=== PATIENT | male | born 1950 | race Two or more races ===

== ENCOUNTER 2018-08-23 12:55 | Emergency (ER) | payer OTHER ==
[~2018-08-23] VITALS: Ht 160 cm; Wt 69.9 kg
[~2018-08-23 12:55] MED LIST: AMOXICILLIN500 MG PO; CELEBREX100 MG PO; CIPRO750 MG PO; CLONAZEPAM1 MG PO; DOCUSATE SODIU100 MG PO; HYZAAR 100-251 UDTAB; MEDROLPACK PO; METHYLPRED4 MG/DOSE- PO; NEURONTIN PO; PERCOCET 5/3251 TAB PO; PROMETHAZINE W118 ML PO; ZOCOR40 MG
== END 2018-08-23 16:47 | disposition home or self-care (01) ==
LOC: ER 12:55
DX: M75.31 Calcific tendinitis of right shoulder (principal)

== ENCOUNTER 2018-12-03 14:43 | Emergency (ER) | payer OTHER ==
[~2018-12-03] VITALS: Ht 160 cm; Wt 69.4 kg
== END 2018-12-03 18:45 | disposition home or self-care (01) ==
LOC: ER 14:43
DX: J11.1 Influenza due to unidentified influenza virus with other respiratory manifestations (principal)

== ENCOUNTER → 2019-02-13 | Outpatient (CLI) | payer OTHER | END | disposition home or self-care (01) | LOC: TOM 13:38 | DX: R91.8 Other nonspecific abnormal finding of lung field (principal) ==

== ENCOUNTER 2019-03-17 13:23 | Outpatient (CLI) | payer OTHER | END 2019-03-17 13:35 | disposition home or self-care (01) | LOC: RAD 13:23 | DX: R10.13 Epigastric pain (principal) | CPT/HCPCS: 73718 ==

== ENCOUNTER 2019-05-16 13:29 | Emergency (ER) | payer OTHER ==
[~2019-05-16] VITALS: Ht 160 cm; Wt 70.3 kg
== END 2019-05-16 15:45 | disposition home or self-care (01) ==
LOC: ER 13:29
DX: L02.212 Cutaneous abscess of back [any part, except buttock and flank] (principal)

== ENCOUNTER 2019-08-18 09:43 | Outpatient (CLI) | payer OTHER | END 2019-08-18 11:37 | disposition home or self-care (01) | LOC: SONOGRAMA 09:43 | DX: G56.01 Carpal tunnel syndrome, right upper limb (principal); G56.02 Carpal tunnel syndrome, left upper limb; M65.4 Radial styloid tenosynovitis [de Quervain] ==

== ENCOUNTER 2019-08-28 13:09 | Outpatient (CLI) | payer OTHER | END 2019-08-28 13:19 | disposition home or self-care (01) | LOC: RAD 13:09 → MAMO-SONO 13:15 → RAD 13:19 | DX: R31.1 Benign essential microscopic hematuria (principal); N28.1 Cyst of kidney, acquired; R91.8 Other nonspecific abnormal finding of lung field; J44.1 Chronic obstructive pulmonary disease with (acute) exacerbation ==

== ENCOUNTER 2019-12-15 13:35 | Outpatient (CLI) | payer OTHER | END 2019-12-15 13:46 | disposition home or self-care (01) | LOC: LAB 13:35 | DX: N20.0 Calculus of kidney (principal) ==

== ENCOUNTER 2019-12-17 08:38 | Outpatient (CLI) | payer OTHER | END 2019-12-17 08:47 | disposition home or self-care (01) | LOC: RAD 08:38 → TOM 09:00 | DX: C02.1 Malignant neoplasm of border of tongue (principal); K13.79 Other lesions of oral mucosa; I10 Essential (primary) hypertension; I87.2 Venous insufficiency (chronic) (peripheral); I70.0 Atherosclerosis of aorta; E78.2 Mixed hyperlipidemia; K57.30 Diverticulosis of large intestine without perforation or abscess without bleeding; K64.8 Other hemorrhoids; Q40.1 Congenital hiatus hernia; K21.9 Gastro-esophageal reflux disease without esophagitis; K29.40 Chronic atrophic gastritis without bleeding; N28.1 Cyst of kidney, acquired; R80.8 Other proteinuria; M15.0 Primary generalized (osteo)arthritis; M51.26 Other intervertebral disc displacement, lumbar region; M54.17 Radiculopathy, lumbosacral region; M25.512 Pain in left shoulder; M25.511 Pain in right shoulder; M25.552 Pain in left hip; M54.2 Cervicalgia; J44.9 Chronic obstructive pulmonary disease, unspecified; R91.8 Other nonspecific abnormal finding of lung field; E55.9 Vitamin D deficiency, unspecified; Z68.28 Body mass index [BMI] 28.0-28.9, adult | CPT/HCPCS: 70360; 70491; Q9965 ==

== ENCOUNTER 2020-05-02 10:06 | Outpatient (CLI) | payer OTHER | END 2020-05-02 12:18 | disposition home or self-care (01) | LOC: TOM 10:06 | PROVIDERS: ATTEND Pain Medicine Interventional Pain Medicine | DX: M54.2 Cervicalgia (principal) | CPT/HCPCS: 72141 ==

== ENCOUNTER → 2020-06-14 | Outpatient (CLI) | payer OTHER | END | disposition home or self-care (01) | LOC: MRI 10:30 → SONOGRAMA 10:50 | PROVIDERS: ATTEND Internal Medicine | DX: I10 Essential (primary) hypertension (principal); I87.2 Venous insufficiency (chronic) (peripheral); I70.0 Atherosclerosis of aorta; E78.2 Mixed hyperlipidemia; K14.8 Other diseases of tongue; K57.30 Diverticulosis of large intestine without perforation or abscess without bleeding; K64.8 Other hemorrhoids; Q40.1 Congenital hiatus hernia; K21.9 Gastro-esophageal reflux disease without esophagitis; K29.40 Chronic atrophic gastritis without bleeding; N28.1 Cyst of kidney, acquired; R80.8 Other proteinuria; M15.0 Primary generalized (osteo)arthritis; M51.26 Other intervertebral disc displacement, lumbar region; M54.17 Radiculopathy, lumbosacral region; M25.512 Pain in left shoulder; M25.511 Pain in right shoulder; M25.561 Pain in right knee; M54.2 Cervicalgia; M75.112 Incomplete rotator cuff tear or rupture of left shoulder, not specified as traumatic; M75.111 Incomplete rotator cuff tear or rupture of right shoulder, not specified as traumatic; J44.9 Chronic obstructive pulmonary disease, unspecified; R91.8 Other nonspecific abnormal finding of lung field; E55.9 Vitamin D deficiency, unspecified; Z68.27 Body mass index [BMI] 27.0-27.9, adult ==

== ENCOUNTER 2020-07-12 06:05 | Day surgery (SDC) | payer OTHER ==
[~2020-07-12 06:05] MED LIST changes: +ZETIA10 MG PO; -ZOCOR40 MG; +ZOCOR40 MG PO
== END 2020-07-12 11:41 | disposition home or self-care (01) ==
LOC: CIR.AMB 06:05
PROVIDERS: ATTEND Orthopaedic Surgery Hand Surgery
DX: G56.01 Carpal tunnel syndrome, right upper limb (principal); Z20.828 Contact with and (suspected) exposure to other viral communicable diseases

== ENCOUNTER 2021-07-21 13:35 | Outpatient (CLI) | payer OTHER ==
[~2021-07-21 13:35] MED LIST changes: +MULTIVITA PO; +VITAMIN B12 PO; +VITAMIN D310 MCG/1 M PO; +VITAMIN PO
== END 2021-07-21 13:40 | disposition home or self-care (01) ==
LOC: SONOGRAMA 13:35
PROVIDERS: ATTEND Internal Medicine
DX: I10 Essential (primary) hypertension (principal); I87.2 Venous insufficiency (chronic) (peripheral); I70.0 Atherosclerosis of aorta; E78.2 Mixed hyperlipidemia; K14.8 Other diseases of tongue; K57.30 Diverticulosis of large intestine without perforation or abscess without bleeding; K64.8 Other hemorrhoids; Q40.1 Congenital hiatus hernia; K21.9 Gastro-esophageal reflux disease without esophagitis; K29.40 Chronic atrophic gastritis without bleeding; N28.1 Cyst of kidney, acquired; R80.8 Other proteinuria; M15.0 Primary generalized (osteo)arthritis; M51.26 Other intervertebral disc displacement, lumbar region; M54.17 Radiculopathy, lumbosacral region; M25.512 Pain in left shoulder; M25.561 Pain in right knee; M25.511 Pain in right shoulder; M75.111 Incomplete rotator cuff tear or rupture of right shoulder, not specified as traumatic; J44.9 Chronic obstructive pulmonary disease, unspecified; R91.8 Other nonspecific abnormal finding of lung field; E55.9 Vitamin D deficiency, unspecified; Z68.27 Body mass index [BMI] 27.0-27.9, adult; E04.1 Nontoxic single thyroid nodule

== ENCOUNTER 2021-07-25 06:35 | Day surgery (SDC) | payer OTHER | END 2021-07-25 11:05 | disposition home or self-care (01) | LOC: CIR.AMB 06:35 | PROVIDERS: ATTEND Orthopaedic Surgery Hand Surgery | DX: G56.02 Carpal tunnel syndrome, left upper limb (principal); Z20.822 Contact with and (suspected) exposure to COVID-19 ==

== ENCOUNTER 2021-08-07 11:47 | Outpatient (CLI) | payer OTHER | END 2021-08-07 12:33 | disposition home or self-care (01) | LOC: SONOGRAMA 11:47 | PROVIDERS: ATTEND Pathology Anatomic Pathology & Clinical Pathology | DX: D34 Benign neoplasm of thyroid gland (principal); E07.89 Other specified disorders of thyroid ==

== ENCOUNTER 2021-11-22 08:09 | Day surgery (SDC) | payer OTHER ==
[2021-11-22] MEDS ORDERED: PERCOCET 5-3251 EACH PO (11:47)
== END 2021-11-22 15:40 | disposition home or self-care (01) ==
LOC: CIR.AMB 08:09
PROVIDERS: ATTEND Surgery
DX: C73 Malignant neoplasm of thyroid gland (principal); Z20.822 Contact with and (suspected) exposure to COVID-19

== ENCOUNTER 2022-03-22 14:44 | Outpatient (CLI) | payer OTHER ==
[~2022-03-22 14:44] MED LIST changes: +PERCOCET 5-3251 EACH PO
== END 2022-03-22 15:00 | disposition home or self-care (01) ==
LOC: MRI 14:44
PROVIDERS: ATTEND Orthopaedic Surgery
DX: M25.561 Pain in right knee (principal); M25.562 Pain in left knee
CPT/HCPCS: 73721

== ENCOUNTER 2022-10-11 10:43 | Outpatient (CLI) | payer OTHER | END 2022-10-11 10:55 | disposition home or self-care (01) | LOC: SONOGRAMA 10:43 | DX: K76.0 Fatty (change of) liver, not elsewhere classified (principal) ==

== ENCOUNTER 2022-12-14 08:10 | Outpatient (CLI) | payer OTHER | END 2022-12-14 08:20 | disposition home or self-care (01) | LOC: RAD 08:10 | PROVIDERS: ATTEND Physical Medicine & Rehabilitation | DX: M17.11 Unilateral primary osteoarthritis, right knee (principal); M75.31 Calcific tendinitis of right shoulder; M75.32 Calcific tendinitis of left shoulder ==

== ENCOUNTER 2023-04-09 11:43 | Outpatient (CLI) | payer OTHER | END 2023-04-09 11:52 | disposition home or self-care (01) | LOC: MRI 11:43 | PROVIDERS: ATTEND Physical Medicine & Rehabilitation | DX: M17.11 Unilateral primary osteoarthritis, right knee (principal); S83.241A Other tear of medial meniscus, current injury, right knee, initial encounter | CPT/HCPCS: 73721 ==

== ENCOUNTER 2023-05-13 13:43 | Outpatient (CLI) | payer OTHER | END 2023-05-13 13:53 | disposition home or self-care (01) | LOC: TOM 13:43 | PROVIDERS: ATTEND Internal Medicine Pulmonary Disease | DX: R91.8 Other nonspecific abnormal finding of lung field (principal) ==

== ENCOUNTER 2023-06-10 14:32 | Outpatient (CLI) | payer OTHER | END 2023-06-10 14:40 | disposition home or self-care (01) | LOC: RAD 14:32 | PROVIDERS: ATTEND Orthopaedic Surgery | DX: R07.9 Chest pain, unspecified (principal) ==

== ENCOUNTER 2023-06-18 08:15 | Outpatient (CLI) | payer OTHER | END 2023-06-18 08:24 | disposition home or self-care (01) | LOC: NUCLEAR 08:15 | PROVIDERS: ATTEND Internal Medicine Pulmonary Disease | DX: R91.8 Other nonspecific abnormal finding of lung field (principal) | CPT/HCPCS: 78815; A9552 ==

== ENCOUNTER 2023-08-23 10:09 | Emergency (ER) | payer OTHER ==
[~2023-08-23] VITALS: Ht 160 cm; Wt 68.9 kg
[2023-08-23 10:54] LABS: HEMATOCRIT 42.7 % (39.0-48.0); MEAN CORPUSCULAR HEMOGLOBIN 31.1 pg (27.00-32.0); MEAN CORPUSCULAR HGB CONC 32.8 g/dl (32.0-36.0); PLATELET COUNT 202 K/uL (150-450)
[2023-08-23 11:12] LABS: CALCIUM 9.1 mg/dL (8.5-10.1); CREATININE SERUM 1.28 mg/dL (0.70-1.30); GFR 54.79; POTASSIUM 4.08 mEq/L (3.5-5.1)
[2023-08-23 12:50] LABS: PH,URINE 6.5 (5.0-8.0); URINE APPEARANCE Clear; URINE BILIRRUBIN Negative (NEGATIVE); URINE COLOR Yellow; URINE GLUCOSE Negative (NEGATIVE); URINE LEUKOCYTE Negative; URINE NITRATE Negative; URINE UROBILINOGEN 0.2 E.U./dl
[2023-08-23 12:51] LABS: URINE BACTERIA 13.8 uL (0.0-1933); URINE EPITHELIAL CELLS 3.7 uL (0.0-38.8); URINE RBC 36.2 uL (0.0-20.8); URINE WBC 6.3 uL (0.0-23.2)
[2023-08-23 13:39] LABS: URINE BLOOD TRACE; URINE PROTEIN 100 (NEGATIVE)
[2023-08-23] MEDS ORDERED: CIPRO500 MG PO (17:01)
[2023-08-23] MEDS ORDERED: KETO10TA2 PO (17:01)
[2023-08-23] MEDS ORDERED: TAMS0.4C PO (17:01)
[2023-08-23] MEDS ORDERED: ONDANSETRON ODT8 MG PO (17:07)
== END 2023-08-23 17:21 | disposition home or self-care (01) ==
LOC: ER 10:09
PROVIDERS: Emergency Medicine
DX: N20.9 Urinary calculus, unspecified (principal); K57.30 Diverticulosis of large intestine without perforation or abscess without bleeding; Z88.8 Allergy status to other drugs, medicaments and biological substances; I10 Essential (primary) hypertension
CPT/HCPCS: 36415; 74176; 96365; 99284; J1885; J2405; J3490

== ENCOUNTER 2023-12-31 09:00 | Inpatient (IN) | payer OTHER ==
[~2023-12-31 09:00] MED LIST changes: +CIPRO500 MG PO; +KETO10TA2 PO; +ONDANSETRON ODT8 MG PO; +TAMS0.4C PO
[2023-12-31] MEDS ORDERED: [UNRECOGNIZED DRUG - OTHER] (11:24)
[2023-12-31] MEDS ORDERED: SINVASTATIN (11:25)
[2023-12-31] MEDS ORDERED: ZETIA10 MG (11:26)
[2024-01-02 16:17] LABS: INR 1.16; PARTIAL THROMBOPLASTIN TIME 28.3 SECONDS (22.0-34.0)
[2024-01-07] MEDS ORDERED: VANCOMYCIN HCL 1,000 MG VIAL ONE ×2 (13:27→13:53)
[2024-01-07] MEDS ORDERED: METHYLPREDNISOLONE SOD SUCC 125 MG VIAL ONE (13:27)
[2024-01-07] MEDS ORDERED: HEMOSTATIC MATRIX 1 KIT KIT TOP ONE (13:27)
[2024-01-07] MEDS ORDERED: CEFAZOLIN SODIUM 1,000 MG VIAL ONE (13:53)
[2024-01-07] MEDS ORDERED: MEDROLPACK PO (14:24)
[2024-01-07] MEDS ORDERED: PERCOCET 5-3251 EACH PO (14:24)
[2024-01-07] MEDS ORDERED: GABAPENTIN100 M2 PO (14:25)
[2024-01-07] MEDS ORDERED: COLACE100 MG PO (14:25)
[2024-01-07] MEDS ORDERED: AMOX-CLAV 875-1 EACH PO (14:25)
[2024-01-07] MEDS ORDERED: NEURONTIN800 MG PO (14:26)
[2024-01-07] MEDS ORDERED: METHYLPREDNISOLONE ACETATE 80 MG/ML VIAL ONE (15:13)
[2024-01-07] MEDS ORDERED: VANCOMYCIN HCL 1,000 MG VIAL IV SCH (18:41)
[2024-01-07] MEDS ORDERED: ENALAPRILAT DIHYDRATE 1.25 MG/ML VIAL IV PRN (18:45)
[2024-01-07] MEDS ORDERED: 0.9 % SODIUM CHLORIDE 1,000 ML IV SCH (18:45)
[2024-01-07] MEDS ORDERED: PROMETHAZINE HCL 50 MG/ML AMPUL IM PRN (18:45)
[2024-01-07] MEDS ORDERED: MORPHINE SULFATE 4 MG/ML CARTRIDGE IV SCH (21:00)
[2024-01-07] MEDS ORDERED: GABAPENTIN 800 MG TABLET PO SCH (21:00)
[2024-01-08] MEDS ORDERED: SODIUM CHLORIDE 0.45 % 1,000 ML IV SCH
[2024-01-08] MEDS ORDERED: CEFAZOLIN SODIUM 1,000 MG in 0.9 % SODIUM CHLORIDE 50 ML IV SCH (01:00)
[2024-01-08] MEDS ORDERED: METHYLPREDNISOLONE SOD SUCC 125 MG VIAL IV SCH (01:00)
[2024-01-08] MEDS ORDERED: OxyCODONE HCL/APAP UD (PERCOCET) PO PRN (06:01)
[2024-01-08 06:55] LABS: CALCIUM 8.5 mg/dL (8.5-10.1); CREATININE SERUM 0.86 mg/dL (0.70-1.30); GFR 86.69; POTASSIUM 3.58 mEq/L (3.5-5.1)
[2024-01-08 07:11] LABS: HEMATOCRIT 38.5 % (39.0-48.0); HEMOGLOBIN 13.3 g/dL (13-16.00); MEAN CELL VOLUME 93.8 fL (80.0-100.00); MEAN CORPUSCULAR HEMOGLOBIN 32.5 pg (27.00-32.0); MEAN CORPUSCULAR HGB CONC 34.7 g/dl (32.0-36.0); PLATELET COUNT 172 K/uL (150-450); RED CELL DISTRIBUTION WIDTH 12.9 % (11.5-14.5)
[2024-01-08] MEDS ORDERED: DOCUSATE SODIUM 100MG CAP PO SCH (09:00)
[2024-01-08] MEDS ORDERED: TAMSULOSIN HCL 0.4 MG CAP PO SCH (09:00)
[2024-01-08] MEDS ORDERED: LOSARTAN/HYDROCHLOROTHIAZIDE 1 UDTAB TABLET PO SCH (09:00)
[2024-01-08] MEDS ORDERED: FAMOtidine 20 MG TABLET PO SCH (09:00)
[2024-01-08] MEDS ORDERED: SIMVASTATIN 20 MG TABLET PO SCH (09:00)
== END 2024-01-09 10:07 | disposition home or self-care (01) | DRG 455 ==
LOC: O/R 01-07 06:20 → PED 01-07 06:20 → SURH 01-07 09:00 → PED 01-07 17:41
PROVIDERS: ADMIT Orthopaedic Surgery Orthopaedic Surgery of the Spine; ATTEND Orthopaedic Surgery Orthopaedic Surgery of the Spine
PROC: XRGC0R7 Fusion of 2 or more Lumbar Vertebral Joints using Custom-Made Anatomically Designed Interbody Fusion Device, Open Approach, New Technology Group 7 (ICD-10-PCS; 2024-01-07)
PROC: 0ST20ZZ Resection of Lumbar Vertebral Disc, Open Approach (ICD-10-PCS; 2024-01-07)
PROC: 07DR0ZZ Extraction of Iliac Bone Marrow, Open Approach (ICD-10-PCS; 2024-01-07)
PROC: 4A1104G Monitoring of Peripheral Nervous Electrical Activity, Intraoperative, Open Approach (ICD-10-PCS; 2024-01-07)
PROC: 0SG1071 Fusion of 2 or more Lumbar Vertebral Joints with Autologous Tissue Substitute, Posterior Approach, Posterior Column, Open Approach (ICD-10-PCS; principal; 2024-01-07 11:15)
DX: M48.062 Spinal stenosis, lumbar region with neurogenic claudication (principal); M51.36 Other intervertebral disc degeneration, lumbar region; M41.56 Other secondary scoliosis, lumbar region

== ENCOUNTER 2024-01-07 06:55 | Outpatient (CLI) | payer OTHER ==
[~2024-01-07 06:55] MED LIST changes: +SINVASTATIN; +ZETIA10 MG; +[UNRECOGNIZED DRUG - OTHER]
[2024-01-07 07:33] LABS: INR 1.13; PROTHROMBIN TIME 11.8 SECONDS (9.0-11.5)
[2024-01-07] MEDS ORDERED: PERCOCET 5-3251 EACH PO (14:24)
[2024-01-07] MEDS ORDERED: MEDROLPACK PO (14:24)
[2024-01-07] MEDS ORDERED: GABAPENTIN100 M2 PO (14:25)
[2024-01-07] MEDS ORDERED: COLACE100 MG PO (14:25)
[2024-01-07] MEDS ORDERED: AMOX-CLAV 875-1 EACH PO (14:25)
[2024-01-07] MEDS ORDERED: NEURONTIN800 MG PO (14:26)
== END 2024-01-07 15:34 | disposition home or self-care (01) ==
LOC: LAB 06:55
PROVIDERS: ATTEND Internal Medicine Geriatric Medicine
DX: D65 Disseminated intravascular coagulation [defibrination syndrome] (principal)

== ENCOUNTER 2024-01-31 11:26 | Outpatient (CLI) | payer OTHER ==
[~2024-01-31 11:26] MED LIST changes: -CEFAZOLIN SODIUM 1,000 MG VIAL IV STA
== END 2024-01-31 11:29 | disposition home or self-care (01) ==
LOC: RAD 11:26
PROVIDERS: ATTEND Orthopaedic Surgery Orthopaedic Surgery of the Spine
DX: Z98.1 Arthrodesis status (principal)

== ENCOUNTER → 2024-01-31 | Emergency (ER) | payer OTHER ==
[~2024-01-31] VITALS: Ht 160 cm; Wt 68.0 kg
[~2024-01-31] MED LIST changes: +AMOX-CLAV 875-1 EACH PO; +CEFAZOLIN SODIUM 1,000 MG VIAL IV STA; +COLACE100 MG PO; +GABAPENTIN100 M2 PO; +NEURONTIN800 MG PO
== END | disposition home or self-care (01) ==
LOC: ER 12:17
DX: L02.212 Cutaneous abscess of back [any part, except buttock and flank] (principal); I10 Essential (primary) hypertension; Z88.8 Allergy status to other drugs, medicaments and biological substances
CPT/HCPCS: 10060; 96365; 99282; J0690

== ENCOUNTER 2024-05-05 14:28 | Emergency (ER) | payer OTHER ==
[~2024-05-05] VITALS: Ht 160 cm; Wt 68.0 kg
[2024-05-05] MEDS ORDERED: DEXAMETHASONE SODIUM PHOSPHATE 4 MG/ML VIAL IM STA (17:00)
[2024-05-05] MEDS ORDERED: DEXAMETHASONE SODIUM PHOSPHATE 4 MG/ML VIAL ONE (17:07)
[2024-05-05] MEDS ORDERED: BENZONATATE200 M1 PO (17:09)
[2024-05-05] MEDS ORDERED: ZYRTEC10 MG PO (17:09)
[2024-05-05] MEDS ORDERED: TUSSIN15 MG/5 M1 PO (17:09)
[2024-05-05] MEDS ORDERED: SINGULAIR10 MG PO (17:09)
[2024-05-05] MEDS ORDERED: LEVOFLOXACIN750 MG PO (17:09)
== END 2024-05-05 17:15 | disposition home or self-care (01) ==
LOC: ER 14:29
DX: R53.81 Other malaise (principal); R05.8 Other specified cough; I10 Essential (primary) hypertension; Z88.9 Allergy status to unspecified drugs, medicaments and biological substances
CPT/HCPCS: 96372; 99282; J1100

== ENCOUNTER 2024-05-18 12:42 | Outpatient (CLI) | payer OTHER ==
[~2024-05-18 12:42] MED LIST changes: +BENZONATATE200 M1 PO; +LEVOFLOXACIN750 MG PO; +SINGULAIR10 MG PO; +TUSSIN15 MG/5 M1 PO; +ZYRTEC10 MG PO
== END 2024-05-18 12:53 | disposition home or self-care (01) ==
LOC: SONOGRAMA 12:42
PROVIDERS: ATTEND Internal Medicine
DX: M75.112 Incomplete rotator cuff tear or rupture of left shoulder, not specified as traumatic (principal); M75.111 Incomplete rotator cuff tear or rupture of right shoulder, not specified as traumatic; M54.42 Lumbago with sciatica, left side; M54.41 Lumbago with sciatica, right side; M25.512 Pain in left shoulder; E55.9 Vitamin D deficiency, unspecified; Z68.28 Body mass index [BMI] 28.0-28.9, adult; K21.9 Gastro-esophageal reflux disease without esophagitis; K29.40 Chronic atrophic gastritis without bleeding; Z86.010 Personal history of colon polyps; N28.1 Cyst of kidney, acquired; R80.8 Other proteinuria; N20.1 Calculus of ureter; M15.0 Primary generalized (osteo)arthritis; M51.26 Other intervertebral disc displacement, lumbar region; M54.17 Radiculopathy, lumbosacral region; M54.2 Cervicalgia; I10 Essential (primary) hypertension; I87.2 Venous insufficiency (chronic) (peripheral); I70.0 Atherosclerosis of aorta; E78.2 Mixed hyperlipidemia; J44.9 Chronic obstructive pulmonary disease, unspecified; R91.8 Other nonspecific abnormal finding of lung field; H81.10 Benign paroxysmal vertigo, unspecified ear; K57.30 Diverticulosis of large intestine without perforation or abscess without bleeding; K64.9 Unspecified hemorrhoids; Q40.1 Congenital hiatus hernia

== ENCOUNTER 2024-06-01 13:36 | Outpatient (CLI) | payer OTHER | END 2024-06-01 13:43 | disposition home or self-care (01) | LOC: RAD 13:36 | PROVIDERS: ATTEND Orthopaedic Surgery Orthopaedic Surgery of the Spine | DX: Z98.1 Arthrodesis status (principal) ==

== ENCOUNTER 2024-07-27 11:20 | Outpatient (CLI) | payer OTHER | END 2024-07-27 11:27 | disposition home or self-care (01) | LOC: TOM 11:20 | PROVIDERS: ATTEND Internal Medicine Pulmonary Disease | DX: R91.8 Other nonspecific abnormal finding of lung field (principal) ==

== ENCOUNTER 2024-10-12 12:33 | Outpatient (CLI) | payer OTHER | END 2024-10-12 12:35 | disposition home or self-care (01) | LOC: SONOGRAMA 12:33 | DX: K76.0 Fatty (change of) liver, not elsewhere classified (principal) ==

== ENCOUNTER 2024-11-25 16:25 | Outpatient (CLI) | payer OTHER | END 2024-11-25 16:30 | disposition home or self-care (01) | LOC: TOM 16:25 | DX: N23 Unspecified renal colic (principal); N20.0 Calculus of kidney ==

== ENCOUNTER 2025-03-09 12:44 | Outpatient (CLI) | payer OTHER | END 2025-03-09 12:47 | disposition home or self-care (01) | LOC: RAD 12:44 | PROVIDERS: ATTEND Orthopaedic Surgery Orthopaedic Surgery of the Spine | DX: Z98.1 Arthrodesis status (principal) ==

== ENCOUNTER → 2025-05-18 | Outpatient (CLI) | payer OTHER | END | disposition home or self-care (01) | LOC: RAD 15:28 | PROVIDERS: ATTEND Internal Medicine | DX: M54.51 Vertebrogenic low back pain (principal); M16.0 Bilateral primary osteoarthritis of hip ==

== ENCOUNTER 2025-05-20 11:26 | Outpatient (CLI) | payer OTHER | END 2025-05-20 11:29 | disposition home or self-care (01) | LOC: SONOGRAMA 11:26 | PROVIDERS: ATTEND Internal Medicine | DX: M65.841 Other synovitis and tenosynovitis, right hand (principal); M65.842 Other synovitis and tenosynovitis, left hand ==